=== PATIENT | female | born 1935 | race Caucasian/White ===

== ENCOUNTER 2017-03-07 15:37 | Emergency (ER) | payer MEDICARE, OTHER ==
[2017-03-07 16:21] LABS: #Eosinphils 0.2 thou/uL (0.0-0.7); #Lymphocytes 1.4 thou/uL (1.20-3.40); #Monocytes 0.8 thou/uL (0.11-0.59); #Neutrophils 4.9 thou/uL (1.40-6.50); %Basophils 0.5 % (0.0-1.0); %Eosinophils 2.6 % (0.0-10.0); %Lymphocytes 18.5 % (21.0-51.0); %Monocytes 11.4 % (0.0-10.0); Hematocrit 42.6 % (36.0-47.0); Mean Platelet Volume 8.4 fL (7.4-10.4); Red Blood Cell (RBC) Count 4.37 mill/uL (4.20-5.40); White Blood Cell (WBC) Count 7.3 thou/uL (4.8-10.8)
[2017-03-07 16:48] LABS: ALT (SGPT) 8 U/L (8-55); AST (SGOT) 13 U/L (5-34); Alkaline Phosphatase 70 U/L (40-150); Anion Gap 13 mmol/L (10-20); BUN (Urea Nitrogen) 17 mg/dL (9.8-20.1); Bilirubin, Total 0.6 mg/dL (0.2-1.2); CK (CPK) 45 U/L (29-168); Calc. Creatinine Clearance 0 mL/min (70-130); Calcium 9.3 mg/dL (7.8-10.44); Carbon Dioxide 21 mmol/L (23-31); Chloride 109 mmol/L (98-107); Estimated GFR-MDRD 74; Globulin 3.2 g/dL (2.4-3.5); Lipase 29 U/L (8-78); Protein, Total 7.1 g/dL (6.0-8.3)
[2017-03-07 16:51] LABS: Troponin I Less than 0.010 ng/mL (< 0.028)
[2017-03-07] MEDS ORDERED: Diazepam 5 MG TAB ONE (16:59)
[2017-03-07] MEDS ORDERED: Metoprolol Tartrate 25 MG TAB ONE (16:59)
--- NOTE | 2017-03-07 17:00 | RAD ---
PORTABLE CHEST ONE VIEW: Date: 03-07-17 Time: 3:20 p.m. History: Chest pain. Palpitations. FINDINGS/IMPRESSION: Comparison is made with exam of 06-26-14. The heart size is borderline. There are chronic changes in the lung garcía bilaterally. No lobar con solidation or pneumothoraces are seen. There may be a small left pleural effusion or scarring in the left lower lateral hemithorax. POS: [facility]
[2017-03-07 18:33] LABS: Bilirubin Negative (Negative); Blood, Urine Negative (Negative); Glucose, Urine (Dipstick) Negative (Negative); Ketone, Urine Negative (Negative); Nitrite Negative (Negative); Protein, Urine (Dipstick) Negative (Neg-Trace); Urobilinogen 0.2 mg/dL (0.2-1.0)
[2017-03-07 18:36] LABS: Bacteria/HPF None Seen HPF (None Seen); Hyaline Casts/LPF 0-3 HYALINE CAST LPF (0-3 Hyaline); RBC/HPF 0-3 HPF (0-3); Squamous Epithelial 0-3 HPF (0-3)
== END 2017-03-07 19:19 | disposition home or self-care (01) ==
LOC: ERS 15:37
DX: I49.1 Atrial premature depolarization (principal); F41.9 Anxiety disorder, unspecified; E86.0 Dehydration; K21.9 Gastro-esophageal reflux disease without esophagitis; E78.5 Hyperlipidemia, unspecified
CPT/HCPCS: 36415; 36416; 71010; 80053; 81003; 81015; 82550; 82553; 83690; 84484; 85025; 93005; 94760; 96360

== ENCOUNTER 2017-11-19 11:33 | Outpatient (CLI) | payer MEDICARE | END 2017-11-19 11:34 | disposition home or self-care (01) | LOC: BICMAMMO 11:33 | PROVIDERS: ATTEND Specialist | DX: Z12.31 Encounter for screening mammogram for malignant neoplasm of breast (principal); R92.1 Mammographic calcification found on diagnostic imaging of breast; Z80.3 Family history of malignant neoplasm of breast | CPT/HCPCS: 77063; 77067 ==

== ENCOUNTER 2018-03-17 08:47 | Emergency (ER) | payer MEDICARE ==
[2018-03-17 09:15] LABS: #Basophils 0.1 thou/uL (0.0-0.2); #Eosinphils 0.1 thou/uL (0.0-0.7); #Lymphocytes 1.4 thou/uL (1.20-3.40); #Monocytes 0.5 thou/uL (0.11-0.59); #Neutrophils 6.4 thou/uL (1.40-6.50); %Basophils 0.8 % (0.0-1.0); %Eosinophils 1.3 % (0.0-10.0); %Lymphocytes 16.2 % (21.0-51.0); %Monocytes 5.7 % (0.0-10.0); %Neutrophils 76.1 % (42.0-75.0); Hemoglobin 14.1 g/dL (12.0-16.0); Mean Corpuscular HGB CONC 33.4 g/dL (32.0-36.0); Mean Corpuscular Hemoglobin 32.1 pg (27.0-31.0); Mean Platelet Volume 9.2 fL (7.4-10.4); Platelet Count 194 thou/uL (130-400); RBC Distribution Width 12.4 % (11.5-14.5); Red Blood Cell (RBC) Count 4.38 mill/uL (4.20-5.40); White Blood Cell (WBC) Count 8.5 thou/uL (4.8-10.8)
[2018-03-17 09:40] LABS: ALT (SGPT) 12 U/L (8-55); AST (SGOT) 18 U/L (5-34); Alkaline Phosphatase 88 U/L (40-150); Anion Gap 12 mmol/L (10-20); BUN (Urea Nitrogen) 13 mg/dL (9.8-20.1); Bilirubin, Total 0.8 mg/dL (0.2-1.2); Calc. Creatinine Clearance 0 mL/min (70-130); Carbon Dioxide 25 mmol/L (23-31); Chloride 107 mmol/L (98-107); Estimated GFR-MDRD 64; Globulin 3.3 g/dL (2.4-3.5); Glucose 103 mg/dL (83-110); Potassium 4.1 mmol/L (3.5-5.1); Protein, Total 7.3 g/dL (6.0-8.3); Sodium 140 mmol/L (136-145)
[2018-03-17 09:44] LABS: Troponin I Less than 0.010 ng/mL (< 0.028)
--- NOTE | 2018-03-17 09:44 | CT ---
HEAD CT WITHOUT CONTRAST: Date: 03/17/18 HISTORY: Pain. FINDINGS: No parenchymal hemorrhage. No extra-axial hematoma. No midline shift. Basilar cisterns are patent. Ag e-appropriate brain volume. Cortical hansen-white matter differentiation preserved. Ventricles and sulc i are patent and symmetric. Calvarium is intact. Adequate aeration of the sinuses and mastoid air diana ls. Cavernous carotid atherosclerosis noted. IMPRESSION: No acute intracranial process. POS: [facility]
--- NOTE | 2018-03-17 09:49 | RAD ---
FRONTAL VIEW CHEST: INDICATION: Chest pain. COMPARISON: 03/07/2017. FINDINGS: Stable elevation of the left hemidiaphragm. There is interstitial prominence of each lung. Linear d ensities at the lateral left mid to lower lung zone remain. Cardiac silhouette is accentuated with p ortable technique. There is vascular calcification and osseous degenerative change. IMPRESSION: Findings that may relate to a persistent area of scar at the left lateral, inferior chest. POS: [facility]
[2018-03-17 11:29] LABS: Bilirubin Negative (Negative); Blood, Urine Negative (Negative); Clarity CLEAR (Clear); Glucose, Urine (Dipstick) Negative (Negative); Leukocyte Negative (Negative); Nitrite Negative (Negative); Protein, Urine (Dipstick) Negative (Neg-Trace); Specific Gravity, Urine 1.013 (1.002-1.036)
== END 2018-03-17 11:35 | disposition home or self-care (01) ==
LOC: ERS 08:47
DX: R20.2 Paresthesia of skin (principal); E03.9 Hypothyroidism, unspecified; K21.9 Gastro-esophageal reflux disease without esophagitis; E78.5 Hyperlipidemia, unspecified; F41.9 Anxiety disorder, unspecified; Z79.899 Other long term (current) drug therapy
CPT/HCPCS: 70450; 71045; 80053; 81003; 82553; 84443; 84484; 85025; 93005

== ENCOUNTER 2018-05-19 10:36 | Outpatient (CLI) | payer MEDICARE ==
--- NOTE | 2018-05-19 12:58 | MRI ---
MRI LUMBAR SPINE NONCONTRAST: DATE: 05/19/2018 HISTORY: An 82-year-old female with low back pain and bilateral lower extremity paresthesia. COMPARISON: None. FINDINGS: There are multiple parapelvic left renal cysts, which should not be mistaken for hydronephrosis. The vertebral body heights are maintained. There are moderate and moderate-severe degenerative disk chandrakant nges at all levels, from L1-L2 through L5-S1. There is moderate to severe disk space narrowing at L1 -L2, L4-L5, and L5-S1. There is moderate disk space narrowing at L2-L3. There are diffuse disk bulg e/broad osteophytic bar complexes that indent the ventral aspect of the thecal sac at all levels from L1-L2 through L5-S1. There is degenerative facet hypertrophy and ligamentum flavum thickening that encroach upon the posterior aspect of the spinal canal, at L3-L4, L4-L5, and L5-S1. There is no chandler r spondylolisthesis. There is no evidence of spondylolysis. The T12-L1 disk space is maintained. T he findings by individual levels are as follows: T12-L1: Mild disk bulge. No central or neural foraminal stenosis. L1-L2: Mild bilateral neural foraminal stenosis. Mild central stenosis. L2-L3: Mild central stenosis. No high-grade neural foraminal stenosis. The conus medullaris termin ates at this level. L3-L4: Mild central stenosis. Mild bilateral neural foraminal stenosis. L4-L5: Mild to moderate bilateral neural foraminal stenosis. Mild central stenosis. Degenerative f acet changes are asymmetrically worse on the right (moderate-severe) than on the left. L5-S1: No central stenosis. Mild bilateral neural foraminal stenosis. Asymmetrically severe left d egenerative facet changes. Moderate right degenerative facet changes. S1-S2: Spinal canal, thecal sac, and neural foramina are generous in caliber. S1 is partially lumba rized. IMPRESSION: 1. Transitional level at the lumbosacral junction, somewhat arbitrarily designated as a partially giana mbarized S1. 2. Advanced lumbar spondylosis, with multilevel advanced degenerative disk disease and lower level hi gh-grade facet osteoarthrosis. 3. No high-grade central spinal canal stenosis, high-grade neural foraminal stenosis, or tom nerve root compression, at any level. JN R POS: [facility]
== END 2018-05-19 10:37 | disposition home or self-care (01) ==
LOC: SCSMRI 10:36
PROVIDERS: ATTEND Psychiatry & Neurology Neurology
DX: R20.2 Paresthesia of skin (principal); M47.816 Spondylosis without myelopathy or radiculopathy, lumbar region; M51.36 Other intervertebral disc degeneration, lumbar region
CPT/HCPCS: 72148

== ENCOUNTER 2018-12-02 15:02 | Outpatient (CLI) | payer MEDICARE ==
--- NOTE | 2018-12-02 16:09 | MMO ---
Bilateral MAMMO Bilat Screen [facility]. CLINICAL HISTORY: Patient is 83 years old and is seen for screening. The patient has the following family history of breast cancer: sister, at age 71. The patient has no personal history of cancer. VIEWS: The views performed were: bilateral craniocaudal with tomosynthesis; bilateral mediolateral oblique with tomosynthesis; and bilateral exaggerated craniocaudal. FILMS COMPARED: The present examination has been compared to a prior imaging study performed at [facility] on 11/19/2017. MAMMOGRAM FINDINGS: The breasts are heterogeneously dense, which could obscure a lesion on mammography. There are vascular calcifications seen in both breasts. There are no suspicious masses, suspicious calcifications, or new areas of architectural distortion. IMPRESSION: THERE IS NO MAMMOGRAPHIC EVIDENCE OF MALIGNANCY. A ROUTINE FOLLOW-UP MAMMOGRAM IN 1 YEAR IS RECOMMENDED. THE RESULTS OF THIS EXAM WERE SENT TO THE PATIENT. ACR BI-RADS Category 2 - Benign finding MAMMOGRAPHY NOTE: 1. A negative mammogram report should not delay a biopsy if a dominant of clinically suspicious mass is present. 2. Approximately 10% to 15% of breast cancers are not detected by mammography. 3. Adenosis and dense breasts may obscure an underlying neoplasm.
== END 2018-12-02 15:03 | disposition home or self-care (01) ==
LOC: BICMAMMO 15:02
PROVIDERS: ATTEND Specialist
DX: Z12.31 Encounter for screening mammogram for malignant neoplasm of breast (principal); Z80.3 Family history of malignant neoplasm of breast
CPT/HCPCS: 77063; 77067

== ENCOUNTER 2019-07-11 07:24 | Day surgery (SDC) | payer MEDICARE ==
[2019-07-10 12:16] VITALS: BMI 18.6
[2019-07-11 08:28] LABS: #Eosinphils 0.1 thou/uL (0.0-0.7); #Lymphocytes 1.7 thou/uL (1.20-3.40); #Monocytes 0.5 thou/uL (0.11-0.59); #Neutrophils 3.8 thou/uL (1.40-6.50); %Basophils 0.5 % (0.0-1.0); %Eosinophils 2.3 % (0.0-10.0); %Lymphocytes 27.8 % (21.0-51.0); %Monocytes 7.5 % (0.0-10.0); %Neutrophils 61.9 % (42.0-75.0); Hemoglobin 13.3 g/dL (12.0-16.0); Mean Corpuscular Hemoglobin 33.2 pg (27.0-31.0); Mean Corpuscular Volume 97.8 fL (78.0-98.0); Mean Platelet Volume 9.1 fL (7.4-10.4); Platelet Count 162 thou/uL (130-400); RBC Distribution Width 11.7 % (11.5-14.5); Red Blood Cell (RBC) Count 4.01 mill/uL (4.20-5.40); White Blood Cell (WBC) Count 6.1 thou/uL (4.8-10.8)
[2019-07-11] MEDS ORDERED: Lidocaine 1% w/Epinephrine 1:100K 20 ML VIAL ONE (09:38)
[2019-07-11] MEDS ORDERED: Dexamethasone 20 MG/5 ML VIAL ONE (13:41)
[2019-07-11] MEDS ORDERED: Ondansetron PF 4 MG/2 ML Vial ONE (13:41)
[2019-07-11] MEDS ORDERED: Lidocaine 1% PF 5 ML VIAL ONE (13:41)
[2019-07-11] MEDS ORDERED: diphenhydrAMINE 50 MG/ML VIAL ONE (13:41)
[2019-07-11] MEDS ORDERED: PROPOFOL 200 MG/20 ML VIAL ONE (13:41)
--- NOTE | 2019-07-12 12:49 | OP ---
DATE OF PROCEDURE: 07/11/2019 PREOPERATIVE DIAGNOSIS: Left carpal tunnel syndrome. POSTOPERATIVE DIAGNOSIS: Left carpal tunnel syndrome. PROCEDURE PERFORMED: Open carpal tunnel release. COMPLAINT EVALUATION SUPERVISOR: None. ANESTHESIOLOGIST: Dr. Chiu. ANESTHESIA: The patient received a TIVA with 6 mL of 1% lidocaine with epinephrine. ESTIMATED BLOOD LOSS: Less than 10 mL. TOURNIQUET TIME: 4 minutes. ANTIBIOTICS: Ancef 2 g. COMPLICATIONS: None. HISTORY OF PRESENT ILLNESS: Ms. Mcwilliams is an 84-year-old female with symptoms of left carpal tunnel and previous history of release on the right, with pain, causing pain at night, continued to have symptoms. She desired to have release. I discussed the risks and benefits of surgery, including pain, scar, bleeding, infection, damage to vital structures, continued pain despite release, increasing pain. The patient understood the risks and benefits and elected to proceed. DESCRIPTION OF PROCEDURE: Time-out was performed designating the patient's left upper extremity as the operative site based on site, consents, and marking. After time-out, the patient's left upper extremity was prepped and draped in sterile fashion. Tourniquet was brought up and left for 4 minutes. An incision was then made from [place] cardinal line proximally down through skin before the flexion crease down through skin and found the patient's palmar fascia, transected, came down into the transverse carpal ligament, hemostat placed underneath it, dissected through the transverse carpal ligament and the palmaris brevis complete to expose the nerve, ensured it was released proximally through digital palpation the tourniquet down to 4 minutes, completely controlled bleeding, closed the skin with 4-0 nylon. I injected some more lidocaine, I injected in a wheal in line with my incision into the incision, closed with 4-0 nylon. The patient will be placed in soft tissue dressings, switch to the carpal tunnel splint. I will follow up with her in 10 to 12 days. Job ID: [id number] [facility]
== END 2019-07-11 11:55 | disposition home or self-care (01) ==
LOC: SDC 07:24
PROVIDERS: ATTEND Orthopaedic Surgery
PROC: 01N50ZZ Release Median Nerve, Open Approach (ICD-10-PCS; principal; 2019-07-11)
DX: G56.02 Carpal tunnel syndrome, left upper limb (principal); E78.00 Pure hypercholesterolemia, unspecified; F41.9 Anxiety disorder, unspecified; M19.90 Unspecified osteoarthritis, unspecified site; Z79.899 Other long term (current) drug therapy; Z87.891 Personal history of nicotine dependence; Z88.2 Allergy status to sulfonamides
CPT/HCPCS: 36415; 85025; 93005; 93010; J0690; J1100; J1200; J2001; J2405; J2704

== ENCOUNTER 2019-12-04 11:14 | Outpatient (CLI) | payer MEDICARE ==
--- NOTE | 2019-12-04 12:20 | MMO ---
Bilateral MAMMO Bilat Screen [facility]. CLINICAL HISTORY: Patient is 84 years old and is seen for screening. The patient has the following family history of breast cancer: sister, at age 71 and niece, at age 30, malignant (generic), X2. The patient has no personal history of cancer. VIEWS: The views performed were: bilateral craniocaudal with tomosynthesis and bilateral mediolateral oblique with tomosynthesis. FILMS COMPARED: The present examination has been compared to prior imaging studies performed at [facility] on 11/19/2017 and 12/02/2018. This study has been interpreted with the assistance of computer-aided detection. MAMMOGRAM FINDINGS: The breasts are heterogeneously dense, which could obscure a lesion on mammography. Finding 1: There are stable benign appearing calcifications seen in both breasts. Finding 2: There are stable benign appearing densities seen in both breasts. There are no suspicious masses, suspicious calcifications, or new areas of architectural distortion. IMPRESSION: THERE IS NO MAMMOGRAPHIC EVIDENCE OF MALIGNANCY. A ROUTINE FOLLOW-UP MAMMOGRAM IN 1 YEAR IS RECOMMENDED. THE RESULTS OF THIS EXAM WERE SENT TO THE PATIENT. ACR BI-RADS Category 2 - Benign finding MAMMOGRAPHY NOTE: 1. A negative mammogram report should not delay a biopsy if a dominant of clinically suspicious mass is present. 2. Approximately 10% to 15% of breast cancers are not detected by mammography. 3. Adenosis and dense breasts may obscure an underlying neoplasm. Reported by: CHUN MAIN MD Electonically Signed: [id number]
== END 2019-12-04 11:15 | disposition home or self-care (01) ==
LOC: BICMAMMO 11:14
PROVIDERS: ATTEND Specialist
DX: Z12.31 Encounter for screening mammogram for malignant neoplasm of breast (principal); Z80.3 Family history of malignant neoplasm of breast
CPT/HCPCS: 77063; 77067

== ENCOUNTER 2020-02-16 10:17 | Outpatient (CLI) | payer MEDICARE ==
--- NOTE | 2020-02-16 10:42 | RAD ---
3 views thoracic spine: 02/16/2020 COMPARISON: None HISTORY: Back pain FINDINGS: There is atherosclerotic calcification of the aortic arch. Thoracic pedicles appear intact on frontal imaging. Lateral imaging demonstrates multilevel mid and lower thoracic spine disc space narrowing with degenerative endplate change and anterior osteophyte formation. No acute fracture is e vident. Significant incompletely imaged multilevel cervical spine degenerative change. IMPRESSION: Degenerative change. No acute osseous abnormality.
== END 2020-02-16 10:18 | disposition home or self-care (01) ==
LOC: BICRAD 10:17
PROVIDERS: ATTEND Specialist
DX: M54.6 Pain in thoracic spine (principal); M47.814 Spondylosis without myelopathy or radiculopathy, thoracic region
CPT/HCPCS: 72072

== ENCOUNTER 2020-10-21 08:37 | Outpatient (CLI) | payer MEDICARE | END 2020-10-21 08:38 | disposition home or self-care (01) | LOC: BICCT 08:37 | PROVIDERS: ATTEND Specialist | DX: I71.9 Aortic aneurysm of unspecified site, without rupture (principal); N28.1 Cyst of kidney, acquired; K57.30 Diverticulosis of large intestine without perforation or abscess without bleeding | CPT/HCPCS: 74176; 76775 ==

== ENCOUNTER 2020-12-05 09:23 | Outpatient (CLI) | payer MEDICARE, OTHER | END 2020-12-05 09:24 | disposition home or self-care (01) | LOC: BICMAMMO 09:23 | PROVIDERS: ATTEND Specialist | DX: Z12.31 Encounter for screening mammogram for malignant neoplasm of breast (principal); Z80.3 Family history of malignant neoplasm of breast | CPT/HCPCS: 77063; 77067 ==

== ENCOUNTER 2021-06-11 15:28 | Emergency (ER) | payer MEDICARE, OTHER ==
[2021-06-11 15:59] LABS: #Basophils 0.1 thou/uL (0.0-0.2); #Lymphocytes 1.4 thou/uL (1.20-3.40); #Monocytes 0.9 thou/uL (0.11-0.59); %Basophils 0.7 % (0.0-1.0); %Eosinophils 0.4 % (0.0-10.0); %Lymphocytes 18.6 % (21.0-51.0); %Neutrophils 68.2 % (42.0-75.0); Hemoglobin 14.1 g/dL (12.0-16.0); Mean Corpuscular HGB CONC 34.6 g/dL (32.0-36.0); Mean Corpuscular Hemoglobin 34.4 pg (27.0-31.0); Mean Corpuscular Volume 99.3 fL (78.0-98.0); Mean Platelet Volume 8.7 fL (7.4-10.4); Platelet Count 167 thou/uL (130-400); RBC Distribution Width 11.7 % (11.5-14.5); Red Blood Cell (RBC) Count 4.11 mill/uL (4.20-5.40); White Blood Cell (WBC) Count 7.3 thou/uL (4.8-10.8)
[2021-06-11 16:24] LABS: ALT (SGPT) 13 U/L (8-55); AST (SGOT) 21 U/L (5-34); Alkaline Phosphatase 75 U/L (40-110); Anion Gap 13 mmol/L (10-20); BUN (Urea Nitrogen) 15 mg/dL (9.8-20.1); Bilirubin, Total 0.5 mg/dL (0.2-1.2); Calc. Creatinine Clearance 0 mL/min (70-130); Calcium 9.6 mg/dL (7.8-10.44); Carbon Dioxide 28 mmol/L (23-31); Chloride 98 mmol/L (98-107); Globulin 3.5 g/dL (2.4-3.5); Glucose 102 mg/dL (83-110); Potassium 4.1 mmol/L (3.5-5.1); Protein, Total 7.5 g/dL (5.8-8.1); Sodium 135 mmol/L (136-145)
[2021-06-11 17:31] LABS: SARS-CoV-2 NAA Rapid Test DETECTED (NotDetected)
== END 2021-06-11 17:55 | disposition home or self-care (01) ==
LOC: ERS 15:28
DX: U07.1 COVID-19 (principal); G62.9 Polyneuropathy, unspecified; E78.5 Hyperlipidemia, unspecified; K21.9 Gastro-esophageal reflux disease without esophagitis
CPT/HCPCS: 70450; 71045; 84484; 93005; 94760; U0002; 80053; 84443; 85025

== ENCOUNTER 2021-09-15 01:15 | Inpatient (IN) | payer MEDICARE ==
[2021-09-15 02:02] LABS: #Lymphocytes 1.1 thou/uL (1.20-3.40); #Monocytes 0.8 thou/uL (0.11-0.59); #Neutrophils 13.7 thou/uL (1.40-6.50); %Basophils 0.2 % (0.0-1.0); %Eosinophils 0.2 % (0.0-10.0); %Lymphocytes 6.8 % (21.0-51.0); %Neutrophils 87.9 % (42.0-75.0); Mean Corpuscular HGB CONC 33.4 g/dL (32.0-36.0); Mean Corpuscular Hemoglobin 33.8 pg (27.0-31.0); Mean Platelet Volume 8.4 fL (7.4-10.4); Platelet Count 192 thou/uL (130-400); RBC Distribution Width 11.5 % (11.5-14.5); Red Blood Cell (RBC) Count 4.14 mill/uL (4.20-5.40); White Blood Cell (WBC) Count 15.5 thou/uL (4.8-10.8)
[2021-09-15] MEDS ORDERED: Morphine 4 MG/ML VIAL ONE (03:21)
[2021-09-15] MEDS ORDERED: Ondansetron PF 4 MG/2 ML Vial ONE ×2 (03:21→06:18)
[2021-09-15 03:54] LABS: ALT (SGPT) 11 U/L (8-55); AST (SGOT) 28 U/L (5-34); Albumin 4.2 g/dL (3.4-4.8); Alkaline Phosphatase 84 U/L (40-110); Anion Gap 19 mmol/L (10-20); BUN (Urea Nitrogen) 22 mg/dL (9.8-20.1); Bilirubin, Total 0.4 mg/dL (0.2-1.2); CK (CPK) 72 U/L (29-168); Calc. Creatinine Clearance 0 mL/min (70-130); Calcium 9.3 mg/dL (7.8-10.44); Carbon Dioxide 18 mmol/L (23-31); Chloride 102 mmol/L (98-107); Globulin 3.3 g/dL (2.4-3.5); Glucose 98 mg/dL (83-110); Lipase 208 U/L (8-78); Potassium 4.7 mmol/L (3.5-5.1); Protein, Total 7.5 g/dL (5.8-8.1); Sodium 134 mmol/L (136-145)
[2021-09-15] MEDS ORDERED: Benzocaine 20% Spray 60 ML CAN ONE (05:31)
[2021-09-15] MEDS ORDERED: Lidocaine Viscous Sol 2% 15 ml UD Cup ONE (05:31)
[2021-09-15] MEDS ORDERED: Ondansetron ODT 4 MG TAB SL PRN (06:30)
[2021-09-15] MEDS ORDERED: Ondansetron PF 4 MG/2 ML Vial IVP PRN ×2 (06:30→08:42)
[2021-09-15] MEDS ORDERED: Sodium Chloride 0.9% 1,000 ML IV SCH (06:30)
[2021-09-15] MEDS ORDERED: Morphine 4 MG/ML VIAL SLOW IVP PRN (08:42)
[2021-09-15] MEDS ORDERED: Promethazine HCl 25 MG/ML VIAL IM PRN (08:42)
[2021-09-15] MEDS ORDERED: Morphine 2 MG/ML VIAL SLOW IVP PRN (08:42)
[2021-09-15] MEDS ORDERED: Dextrose 50% Abboject 50 ML SYRINGE SLOW IVP PRN (08:42)
[2021-09-15] MEDS ORDERED: hydrALAZINE 20 MG/ML VIAL SLOW IVP PRN (08:42)
[2021-09-15] MEDS ORDERED: Dextrose 5% in Water 1,000 ML IV PRN (08:42)
[2021-09-15] MEDS: D5 1/2 NS w/20 mEq KCL 1,000 ML IV SCH ×2 (09:16→18:05)
[2021-09-15] MEDS: Pantoprazole 40 MG VIAL IVP SCH (09:16)
[2021-09-15] MEDS ORDERED: Iopamidol-370 76% 500 ML 1 ML ONE (13:54)
[2021-09-15] MEDS: Enoxaparin Sodium 40 MG/0.4 ML SYRINGE SC SCH (20:24)
[2021-09-15 22:15] VITALS: BMI 17.7
[2021-09-16] MEDS: D5 1/2 NS w/20 mEq KCL 1,000 ML IV SCH ×3 (02:58→20:49)
[2021-09-16 05:53] LABS: #Eosinphils 0.2 thou/uL (0.0-0.7); #Lymphocytes 1.7 thou/uL (1.20-3.40); #Monocytes 0.6 thou/uL (0.11-0.59); #Neutrophils 4.7 thou/uL (1.40-6.50); %Basophils 0.6 % (0.0-1.0); %Eosinophils 2.2 % (0.0-10.0); %Lymphocytes 23.6 % (21.0-51.0); %Monocytes 8.2 % (0.0-10.0); %Neutrophils 65.4 % (42.0-75.0); Hemoglobin 12.4 g/dL (12.0-16.0); Mean Corpuscular HGB CONC 33.2 g/dL (32.0-36.0); Mean Platelet Volume 8.6 fL (7.4-10.4); Platelet Count 147 thou/uL (130-400); RBC Distribution Width 11.7 % (11.5-14.5); Red Blood Cell (RBC) Count 3.64 mill/uL (4.20-5.40); White Blood Cell (WBC) Count 7.2 thou/uL (4.8-10.8)
[2021-09-16 06:20] LABS: Anion Gap 9 mmol/L (10-20); BUN (Urea Nitrogen) 11 mg/dL (9.8-20.1); Calc. Creatinine Clearance 44 mL/min (70-130); Calcium 8.3 mg/dL (7.8-10.44); Carbon Dioxide 26 mmol/L (23-31); Chloride 108 mmol/L (98-107); Glucose 113 mg/dL (83-110); Potassium 4.2 mmol/L (3.5-5.1); Sodium 139 mmol/L (136-145)
[2021-09-16] MEDS: Pantoprazole 40 MG VIAL IVP SCH (07:47)
[2021-09-16] MEDS ORDERED: LIDOCAINE 2% SSW PRN (07:58)
[2021-09-16] MEDS ORDERED: MAGNESIUM HYDROXIDE SSW PRN (07:58)
[2021-09-16] MEDS ORDERED: [UNRECOGNIZED DRUG - OTHER] SSW PRN (07:58)
[2021-09-16] MEDS: Enoxaparin Sodium 40 MG/0.4 ML SYRINGE SC SCH (20:49)
[2021-09-17] MEDS: D5 1/2 NS w/20 mEq KCL 1,000 ML IV SCH (03:27)
[2021-09-17 05:28] LABS: #Eosinphils 0.1 thou/uL (0.0-0.7); #Lymphocytes 1.7 thou/uL (1.20-3.40); #Monocytes 0.6 thou/uL (0.11-0.59); #Neutrophils 3.8 thou/uL (1.40-6.50); %Basophils 0.4 % (0.0-1.0); %Eosinophils 1.8 % (0.0-10.0); %Lymphocytes 27.3 % (21.0-51.0); %Monocytes 9.3 % (0.0-10.0); %Neutrophils 61.2 % (42.0-75.0); Hemoglobin 12.6 g/dL (12.0-16.0); Mean Corpuscular Hemoglobin 33.8 pg (27.0-31.0); Mean Platelet Volume 9.5 fL (7.4-10.4); Platelet Count 153 thou/uL (130-400); RBC Distribution Width 11.6 % (11.5-14.5); Red Blood Cell (RBC) Count 3.74 mill/uL (4.20-5.40); White Blood Cell (WBC) Count 6.3 thou/uL (4.8-10.8)
[2021-09-17 05:49] LABS: Anion Gap 10 mmol/L (10-20); BUN (Urea Nitrogen) 8 mg/dL (9.8-20.1); Calc. Creatinine Clearance 43 mL/min (70-130); Calcium 8.9 mg/dL (7.8-10.44); Carbon Dioxide 26 mmol/L (23-31); Chloride 107 mmol/L (98-107); Glucose 104 mg/dL (83-110); Potassium 4.6 mmol/L (3.5-5.1); Sodium 138 mmol/L (136-145)
[2021-09-17 08:25] VITALS: BP 158/63; TEMP 98
== END 2021-09-17 11:15 | disposition home or self-care (01) | DRG 388 ==
LOC: ERS 01:15 → SURG A 06:25
PROVIDERS: ADMIT Surgery; ATTEND Surgery
PROC: 0D9670Z Drainage of Stomach with Drainage Device, Via Natural or Artificial Opening (ICD-10-PCS; principal; 2021-09-15)
DX: K56.51 Intestinal adhesions [bands], with partial obstruction (principal); K85.90 Acute pancreatitis without necrosis or infection, unspecified; E44.0 Moderate protein-calorie malnutrition; Z68.1 Body mass index [BMI] 19.9 or less, adult; K21.9 Gastro-esophageal reflux disease without esophagitis; E78.5 Hyperlipidemia, unspecified; G47.00 Insomnia, unspecified; I10 Essential (primary) hypertension; E03.9 Hypothyroidism, unspecified; E86.0 Dehydration; F41.9 Anxiety disorder, unspecified; Z90.49 Acquired absence of other specified parts of digestive tract; Z90.710 Acquired absence of both cervix and uterus; Z98.890 Other specified postprocedural states; Z88.2 Allergy status to sulfonamides; Z82.49 Family history of ischemic heart disease and other diseases of the circulatory system; Z79.899 Other long term (current) drug therapy; Z79.890 Hormone replacement therapy
CPT/HCPCS: 36415; 74018; 74177; 80048; 80053; 82550; 83605; 83690; 84484; 85025; 93005; 96374; 96375; 96376; C9113; J1650; J2270; J2405; J3480; Q9967

== ENCOUNTER 2021-12-08 09:45 | Outpatient (CLI) | payer MEDICARE | END 2021-12-08 09:46 | disposition home or self-care (01) | LOC: BICMAMMO 09:45 | PROVIDERS: ATTEND Specialist | DX: Z12.31 Encounter for screening mammogram for malignant neoplasm of breast (principal); Z80.3 Family history of malignant neoplasm of breast | CPT/HCPCS: 77063; 77067 ==

== ENCOUNTER 2022-09-11 13:05 | Outpatient (CLI) | payer MEDICARE, OTHER | END 2022-09-11 13:06 | disposition home or self-care (01) | LOC: RAD 13:05 | PROVIDERS: ATTEND Internal Medicine Gastroenterology | DX: R13.10 Dysphagia, unspecified (principal); K21.9 Gastro-esophageal reflux disease without esophagitis | CPT/HCPCS: 74246 ==

== ENCOUNTER 2022-09-30 08:42 | Outpatient (CLI) | payer MEDICARE, OTHER | END 2022-09-30 08:43 | disposition home or self-care (01) | LOC: RAD 08:42 | PROVIDERS: ATTEND Internal Medicine Gastroenterology | DX: R13.10 Dysphagia, unspecified (principal); K21.9 Gastro-esophageal reflux disease without esophagitis; J90 Pleural effusion, not elsewhere classified; J98.4 Other disorders of lung | CPT/HCPCS: 71045 ==

== ENCOUNTER 2022-12-25 13:07 | Emergency (ER) | payer MEDICARE, OTHER ==
[2022-12-25] MEDS ORDERED: Boostrix 0.5 ML (Tdap) VIAL (>/=7 yrs of age) ONE (15:26)
== END 2022-12-25 15:35 | disposition home or self-care (01) ==
LOC: ERS 13:07
DX: S80.211A Abrasion, right knee, initial encounter (principal); M25.571 Pain in right ankle and joints of right foot; X50.0XXA Overexertion from strenuous movement or load, initial encounter
CPT/HCPCS: 90471; 90715

== ENCOUNTER 2022-12-28 12:26 | Outpatient (CLI) | payer MEDICARE, OTHER | END 2022-12-28 12:27 | disposition home or self-care (01) | LOC: BICMAMMO 12:26 | PROVIDERS: ATTEND Specialist | DX: Z12.31 Encounter for screening mammogram for malignant neoplasm of breast (principal); Z80.3 Family history of malignant neoplasm of breast | CPT/HCPCS: 77063; 77067 ==

== ENCOUNTER 2024-05-19 13:01 | Outpatient (CLI) | payer OTHER | END 2024-05-19 13:02 | disposition home or self-care (01) | LOC: BICRAD 13:01 | PROVIDERS: ATTEND Specialist | DX: R10.2 Pelvic and perineal pain (principal); W19.XXXA Unspecified fall, initial encounter | CPT/HCPCS: 72100; 72170; 72220 ==

== ENCOUNTER 2024-06-09 10:57 | Outpatient (CLI) | payer OTHER | END 2024-06-09 10:58 | disposition home or self-care (01) | LOC: BICMRI 10:57 | PROVIDERS: ATTEND Specialist | DX: M54.50 Low back pain, unspecified (principal); M47.816 Spondylosis without myelopathy or radiculopathy, lumbar region; M47.817 Spondylosis without myelopathy or radiculopathy, lumbosacral region; M47.815 Spondylosis without myelopathy or radiculopathy, thoracolumbar region | CPT/HCPCS: 72148 ==

== ENCOUNTER 2024-06-26 10:33 | Outpatient (CLI) | payer MEDICARE, OTHER | END 2024-06-26 10:34 | disposition home or self-care (01) | LOC: BICMAMMO 10:33 | PROVIDERS: ATTEND Specialist | DX: Z12.31 Encounter for screening mammogram for malignant neoplasm of breast (principal); Z80.3 Family history of malignant neoplasm of breast | CPT/HCPCS: 77063; 77067 ==